=== PATIENT | male | born 1950 | race Caucasian/White ===

== ENCOUNTER 2018-12-18 15:29 | Observation (INO) ==
[2018-12-18] MEDS ORDERED: Morphine Sulfate Inj 2 MG/ML Vial IV.PUSH ONE (17:23)
--- NOTE | 2018-12-18 17:29 | ED ---
HPI General Chief complaint: Abdominal Pain Stated complaint: nausea/abd pain/shaking/no appetite Time Seen by Provider: 12/18/18 17:16 Source: patient Mode of arrival: ambulatory Limitations: no limitations History of Present Illness HPI narrative: 68yo M with PMH of possible paroxysmal afib not on anticoagulation, hernia repair, here with c/o persistent right lower abdominal pain and nausea since yesterday afternoon. Pt was seen this morning for this and had blood work, urinalysis and xray abdomen. Xray abdomen showed small amount of stool throughout a normal caliber colon. Pt said he drank prune juice and had small bowel movement but still with right sided abdominal pain and nausea so called his primary care who told him to come to ED for CT scan to r/o appendicitis. Pain is right mid abdomen and intermittent, mild, nonradiating, about a 3 out of 10 now. Denies any fever, chest pain, sob, vomiting, focal weakness or numbness. Related Data Home Medications Medication Instructions Recorded Confirmed amlodipine 5 mg PO DAILY 12/18/18 12/18/18 aspirin [Aspirin Low Dose] 81 mg PO DAILY 12/18/18 12/18/18 propranolol 60 mg PO DAILY 12/18/18 12/18/18 Allergies Allergy/AdvReac Type Severity Reaction Status Date / Time No Known Allergies Allergy Verified 12/18/18 10:10 Review of Systems ROS: all other systems reviewed are negative [facility] Social History Social History Substance History: No History of Abuse Second Hand Smoke Exposure: No Smoking Status: Never smoker How Often Do You Have a Drink Containing Alcohol: 2 to 3 times a week Recent Travel in [facility] within the Last 8 Weeks: No Recent Out of Country Travel within the Last 8 Weeks: No Exam Narrative Exam Narrative: GENERAL: 68yo M not in distress. SKIN: Focused skin assessment warm/dry. HEAD: Atraumatic. Normocephalic. EYES: Pupils equal and round. No scleral icterus. No injection or drainage. ENT: No nasal bleeding or discharge. Mucous membranes pink and moist. NECK: Trachea midline. No JVD. CARDIOVASCULAR: Regular rate and rhythm. No murmur appreciated. RESPIRATORY: No accessory muscle use. Clear to auscultation. Breath sounds equal bilaterally. GASTROINTESTINAL: Abdomen soft, +mild TTP right midabdomen and RLQ. No rebound tenderness or guarding. MUSCULOSKELETAL: No obvious deformities. No clubbing. No cyanosis. No edema. NEUROLOGICAL: Awake and alert. No obvious cranial nerve deficits. Motor grossly within normal limits. Normal speech. PSYCHIATRIC: Appropriate mood and affect; insight and judgment normal. Course Initial Documented Vital Signs Temperature 98.6 F 12/18/18 15:44 Pulse Rate 75 12/18/18 15:44 Respiratory Rate 16 12/18/18 15:44 Blood Pressure 111/56 L 12/18/18 15:44 Pulse Oximetry 94 L 12/18/18 15:44 Last Documented Vital Signs Temperature 97.9 F 12/19/18 13:15 Pulse Rate 68 12/19/18 13:15 Respiratory Rate 19 12/19/18 13:15 Blood Pressure 96/55 L 12/19/18 13:15 Pulse Oximetry 100 12/19/18 13:15 Medical Decision Making MDM Narrative Medical decision making narrative: 68yo M returns to the ED with persistent right lower abdominal pain and nausea after discharge this morning. Pt already had CBC and BMP from this morning so will not repeat it. Also had negative urinalysis today. CT a/p showed acute appendicitis without rupture or periappendiceal abscess. Added PT/PTT/INR, type and screen as well as EKG. Pt was given zofran and morphine but refused morphine since he said he is not in much pain. Discussed with general surgeon Dr. Bautista who recommends transfer to the [facility] for surgery since he do not have anesthesia after 5pm. Discussed with Dr. Anna and accepted to his service. Pt given IVF. and is NPO for surgery today. Medical Screen Exam Complete: Yes Emergency Medical Condition: Yes Differential Diagnosis Differential Diagnosis: Appendicitis vs. colitis vs. nephrolithiasis Lab Data Result diagrams: 12/19/18 13:25 12/19/18 07:52 Lab Results 12/18/18 12/18/18 12/19/18 Range/Units 19:00 19:00 07:52 WBC (4.0-11.0) th/mm3 RBC (4.50-5.90) mil/mm3 Hgb (13.0-17.0) gm/dL Hct (39.0-51.0) % MCV (80.0-100.0) fL MCH (27.0-34.0) pg MCHC (32.0-36.0) % RDW (11.6-17.2) % Plt Count (150-450) th/mm3 MPV (7.0-11.0) fL Neut % (Auto) (16.0-70.0) % Lymph % (Auto) (9.0-44.0) % [place] % (Auto) (0.0-8.0) % Eos % (Auto) (0.0-4.0) % Baso % (Auto) (0.0-2.0) % Neut # (Auto) (1.8-7.7) th/mm3 Lymph # (Auto) (1.0-4.8) th/mm3 [place] # (Auto) (0.0-0.9) th/mm3 Eos # (Auto) (0.0-0.4) th/mm3 Baso # (Auto) (0.0-0.2) th/mm3 WBC Differential Differential Comment PT 11.0 (9.8-11.6) sec INR 1.1 Ratio APTT 30.6 (23.4-31.7) sec Sodium 140 (136-145) meq/L Potassium 3.6 (3.5-5.1) meq/L Chloride 106 (98-107) meq/L Carbon Dioxide 29.1 (21.0-32.0) meq/L Anion Gap 5 (5-15) meq/L BUN 11 (7-18) mg/dL Creatinine 1.00 (0.60-1.30) mg/dL Estimated GFR 74 L (>89) mL/min Random Glucose 109 H (74-106) mg/dL Calcium 8.3 L D (8.5-10.1) mg/dL Total Bilirubin 1.4 H (0.2-1.0) mg/dL AST 11 L (15-37) U/L ALT 17 (12-78) U/L Alkaline Phosphatase 72 (45-117) U/L Total Protein 6.1 L (6.4-8.2) g/dL Albumin 3.3 L (3.4-5.0) g/dL Blood Type O Positive Antibody Screen Negative 12/19/18 Range/Units 13:25 WBC 8.2 (4.0-11.0) th/mm3 RBC 4.33 L (4.50-5.90) mil/mm3 Hgb 14.5 (13.0-17.0) gm/dL Hct 41.6 (39.0-51.0) % MCV 96.2 (80.0-100.0) fL MCH 33.5 (27.0-34.0) pg MCHC 34.8 (32.0-36.0) % RDW 12.8 (11.6-17.2) % Plt Count 153 (150-450) th/mm3 MPV 7.6 (7.0-11.0) fL Neut % (Auto) 91.5 H (16.0-70.0) % Lymph % (Auto) 2.9 L (9.0-44.0) % [place] % (Auto) 5.0 (0.0-8.0) % Eos % (Auto) 0.1 (0.0-4.0) % Baso % (Auto) 0.5 (0.0-2.0) % Neut # (Auto) 7.5 (1.8-7.7) th/mm3 Lymph # (Auto) 0.2 L (1.0-4.8) th/mm3 [place] # (Auto) 0.4 (0.0-0.9) th/mm3 Eos # (Auto) 0.0 (0.0-0.4) th/mm3 Baso # (Auto) 0.0 (0.0-0.2) th/mm3 WBC Differential . Differential Comment Auto diff final PT (9.8-11.6) sec INR Ratio APTT (23.4-31.7) sec Sodium (136-145) meq/L Potassium (3.5-5.1) meq/L Chloride (98-107) meq/L Carbon Dioxide (21.0-32.0) meq/L Anion Gap (5-15) meq/L BUN (7-18) mg/dL Creatinine (0.60-1.30) mg/dL Estimated GFR (>89) mL/min Random Glucose (74-106) mg/dL Calcium (8.5-10.1) mg/dL Total Bilirubin (0.2-1.0) mg/dL AST (15-37) U/L ALT (12-78) U/L Alkaline Phosphatase (45-117) U/L Total Protein (6.4-8.2) g/dL Albumin (3.4-5.0) g/dL Blood Type Antibody Screen Imaging Data Radiologist's impression: Abdomen/Pelvis CT 12/18/18 17:23 CONCLUSION: 1. Acute appendicitis without evidence for rupture or periappendiceal abscess at this time. 2. Significant nonspecific prostate enlargement. 3. Multiple bilobar subcentimeter hypodense cystic lesions in the liver and inferior pole the right kidney which are too small to fully characterize. Statistically, these reflect cysts or hemangiomas. 4. Mild groundglass opacities at the right lung base, likely atelectasis. ECG Data EKG Prior to Arrival: No Attestation: I personally reviewed and interpreted this ECG as follows: Interpretation: NSR 68bpm. 1st AV block. No significant ST elevation or depression. Discharge Plan Discharge Disposition Patient Disposition: ED Admit(ED Internal Use Only) Discharge Order Discharge Orders: ED Use Only Admit Order (Routine); Ordered 12/18/18 Ordered By: Felicity Holland Discharge Details Diagnosis: Acute appendicitis Physicians Team ED Provider: Felicity Holland Primary Care Provider: UNKNOWN, Attending Provider: Kym Aceves Other Providers: Everett Bautista Status ED Status: Left Department Discharge Information Discharge Date/Time: 12/18/18 22:15
[2018-12-18] MEDS ORDERED: Sod Chloride 0.9% Inj 1,000 ML IV.SIG SCH (17:30)
--- NOTE | 2018-12-18 18:04 | CT ---
EXAM DATE: 12/18/2018 5:57 PM EST AGE/SEX: 68 years / Male INDICATIONS: Right sided abdomen pain with nausea. CLINICAL DATA: This is the patient's subsequent encounter. Patient reports that signs and symptoms h ave been present for 1 day and indicates a pain score of 7/10. MEDICAL/SURGICAL HISTORY: Hypertension. A-fib. None. ORAL CONTRAST: No oral contrast ingested. RADIATION DOSE: 9.47 CTDI (mGy) COMPARISON: [facility], ABDOMEN 2V FLAT & UPRIGHT, 12/18/2018. . TECHNIQUE: Multiple contiguous axial images were obtained through the abdomen and pelvis following b olus infusion of 95 ml Omnipaque 350 (iohexol) nonionic water-soluble contrast as a single exam dos e. No oral contrast ingested. Using automated exposure control and adjustment of the mA and/or kV ac cording to patient size, radiation dose was kept as low as reasonably achievable to obtain optimal di agnostic quality images. DICOM format image data is available electronically for review and comparis on. FINDINGS: LOWER LUNGS: Mild groundglass opacities at the right lung base. LIVER: There are scattered hypodense lesions in both lobes of the liver. The largest lesion in segme nt 4 measures 2.4 cm. No volume loss or intrahepatic ductal dilatation. SPLEEN: Homogeneous density without enlargement. PANCREAS: Unremarkable without mass or calcification. KIDNEYS: Kidneys demonstrate symmetrical enhancement and are symmetrical in size without evidence fo r radiopaque renal calculi or hydronephrosis. Small subcentimeter hypodense cystic lesion in the infe rior pole of the right kidney is too small to fully characterize. ADRENAL GLANDS: Unremarkable. AORTA: Radha-aneurysmal. BOWEL/MESENTERY: Appendix is enlarged with an appendicolith present. There is moderate periappendice al stranding. No focal drainable fluid collections or pneumatosis. No free air. Remaining bowel appea r unremarkable. ABDOMINAL WALL: Intact. RETROPERITONEUM: No evidence of adenopathy in the retrocrural, para-aortic, or deep pelvic regions. BLADDER: Contours are smooth. REPRODUCTIVE: Prominent prostate enlargement. BONY STRUCTURES: Degenerative spondylosis of the lower lumbar spine. CONCLUSION: 1. Acute appendicitis without evidence for rupture or periappendiceal abscess at this time. 2. Significant nonspecific prostate enlargement. 3. Multiple bilobar subcentimeter hypodense cystic lesions in the liver and inferior pole the right kidney which are too small to fully characterize. Statistically, these reflect cysts or hemangiomas. 4. Mild groundglass opacities at the right lung base, likely atelectasis. Electronically signed by: Gurpreet Hickman MD Board Certified Radiologist 12/18/2018 6:03 PM EST
[2018-12-18] MEDS ORDERED: HYDROmorphone PF Inj 0.5 MG/0.5 ML Syringe IV.PUSH PRN (18:30)
[2018-12-18] MEDS ORDERED: HYDROmorphone PF Inj 2 MG/ML Vial IV.PUSH PRN (18:30)
[2018-12-18 19:31] LABS: Activated Partial Thrombo Time 30.6 sec (23.4-31.7); INR 1.1 Ratio
--- NOTE | 2018-12-18 19:38 | P.HPIM ---
History of Present Illness Primary Care Physician: UNKNOWN Chief Complaint: Abdominal Pain History of Present Illness: Mr. Dos Santos is a 68 year old male. He has recently arrived here from [place] and will be here till February 2019. He has come into the ER with abdominal pain. Imaging shows an acute appendisitis. Symptoms started as diffuse abdominal pain and bloating, yesterday. Symptoms have focused to the right side today and was more intense in regards to pain. At baseline he reports that he is on amlodipine, propranolol, and aspirin for a cardiac arrhythmia. He is uncertain that his underlying cardiac arrhythmia is A-fib. He last took his treatments yesterday. No arrhythmia in the ER, when seen. No distress, pain controlled, when seen. No other chronic medical problems and no other complaints tonight (no fever, no chills, no diarrhea, no vomiting). Inpatient Certification Inpatient Certification: I certify that the inpatient services were ordered in accordance with Medicare regulations governing the order. This includes certification that hospital inpatient services are reasonable and necessary and in the case of services not specified as inpatient-only under 42 CFR 419.22(n), that they are appropriately provided as inpatient services in accordance to with the 2-midnight benchmark under 43 CFR 412.3(e) Estimated Total Length of Stay (Days): 3 Plans for Post Hospital Care: Home Review of Systems Constitutional: No fevers, no chills no night sweats, no fatigue, no weakness Eyes: No eye pain, no blurry vision, no loss of vision ENT: No sore throat, no ear pain, no rhinorrhea Cardiovascular: No chest pain, no tachycardia, no palpitations, no syncope Respiratory: No wheezing, no cough, no shortness of breath Gastrointestinal: abdominal pain, no black tarry stools, no bright red blood per rectum, no vomiting, no diarrhea Musculoskeletal: No joint pain, no muscle cramps, no stiffness Integumentary: No rash, no ulcers, no drainage Neurologic: No sensory loss, no loss of motor function, no dizziness Psychiatric: No behavioral changes, no hallucinations, no suicidal ideations [facility] Social History Social History Substance History: No History of Abuse Second Hand Smoke Exposure: No Smoking Status: Never smoker How Often Do You Have a Drink Containing Alcohol: 2 to 3 times a week Recent Travel in [facility] within the Last 8 Weeks: No Recent Out of Country Travel within the Last 8 Weeks: No Immunization History Tetanus Immunization: >5 Years Medications and Allergies Allergies Allergy/AdvReac Type Severity Reaction Status Date / Time No Known Allergies Allergy Verified 12/18/18 10:10 Home Medications Medication Instructions Recorded Confirmed Type amlodipine 5 mg PO DAILY 12/18/18 12/18/18 History aspirin [Aspirin Low Dose] 81 mg PO DAILY 12/18/18 12/18/18 History propranolol 60 mg PO DAILY 12/18/18 12/18/18 History Active Medications: Active Medications Hydromorphone HCl (Dilaudid Pf Inj) 0.5 mg IV.PUSH Q4H PRN PRN Reason: Pain 3 to 6 Hydromorphone HCl (Dilaudid Pf Inj) 1 mg IV.PUSH Q4H PRN PRN Reason: Pain 7 to 10 Sodium Chloride (Ns Inj) 1,000 mls @ 100 mls/hr IV.CONT .Q10H IGLESIA Metoprolol Tartrate (Lopressor Inj) 5 mg IV.PUSH Q6H IGLESIA Ondansetron HCl (Zofran Inj) 4 mg IV.PUSH Q6H PRN PRN Reason: NAUSEA OR VOMITING Sodium Chloride (Ns Flush) 2 ml IV.FLUSH BID IGLESIA Sodium Chloride (Ns Flush) 2 ml IV.FLUSH PRN PRN PRN Reason: FLUSH AFTER USING IV ACCESS Physical Exam Vital signs: Vital Signs 12/18/18 15:44 12/18/18 18:02 12/18/18 19:14 Temperature 98.6 F 98.6 F 98.3 F Pulse Rate 75 70 73 Respiratory Rate 16 18 Blood Pressure 111/56 L 118/63 128/74 Pulse Oximetry 94 L 95 12/18/18 19:17 Temperature Pulse Rate 73 Respiratory Rate Blood Pressure Pulse Oximetry Intake & Output 12/18/18 12/18/18 12/19/18 06:59 18:59 06:59 Intake Total 1000 / 1000 Balance 1000 / 1000 Weight 80.7 kg Intake: IV 1000 / 1000 NS Inj 1,000 ML @ 1000 mls/hr 1000 / 1000 IV.SIG BOLUS IGLESIA Rx#:[id number] Other: # Voids 1 Date of Last Bowel Movement 12/18/18 Narrative: Narrative: GENERAL: NAD, A&Ox3 HEAD: Normocephalic. NECK: Supple, trachea midline. No lymphadenopathy. EYES: No scleral icterus. No injection or drainage. CARDIOVASCULAR: Regular rate and rhythm without murmurs, gallops, or rubs. RESPIRATORY: Breath sounds equal bilaterally. No accessory muscle use. GASTROINTESTINAL: Abdomen soft, tender without guarding, nondistended. MUSCULOSKELETAL: No cyanosis, or edema. SKIN: Warm and dry. NEURO: No focal neurological deficits. Results Imaging Impressions Abdomen/Pelvis CT 12/18/18 17:23 CONCLUSION: 1. Acute appendicitis without evidence for rupture or periappendiceal abscess at this time. 2. Significant nonspecific prostate enlargement. 3. Multiple bilobar subcentimeter hypodense cystic lesions in the liver and inferior pole the right kidney which are too small to fully characterize. Statistically, these reflect cysts or hemangiomas. 4. Mild groundglass opacities at the right lung base, likely atelectasis. Caprini VTE Risk Assessment Caprini VTE Risk Assessment: No/Low Risk (score <= 1) Caprini Risk Assessment Model: Point Value = 1 Point Value = 2 Point Value = 3 Point Value = 5 Age 41-60 Minor surgery BMI > 25 kg/m2 Swollen legs Varicose veins or History of unexplained or recurrent spontaneous Oral contraceptives or hormone replacement Sepsis (< 1 month) Serious lung disease, including pneumonia (< 1 month) Abnormal pulmonary function Acute myocardial infarction Congestive heart failure (< 1 month) History of inflammatory bowel disease Medical patient at bed rest Age 61-74 Arthroscopic surgery Major open surgery (> 45 min) Laparoscopic surgery (> 45 min) Malignancy Confined to bed (> 72 hours) Immobilizing plaster cast Central venous access Age >= 75 History of VTE Family history of VTE Factor V Leiden Prothrombin [id number] Lupus anticoagulant Anticardiolipin antibodies Elevated serum homocysteine Heparin-induced thrombocytopenia Other congenital or acquired thrombophilia Stroke (< 1 month) Elective arthroplasty Hip, pelvis, or leg fracture Acute spinal cord injury (< 1 month) Prophylaxis Regimen: Total Risk Factor Score Risk Level Prophylaxis Regimen 0-1 Low Early ambulation 2 Moderate Order ONE of the following: *Sequential Compression Device (SCD) *Heparin 5000 units SQ BID 3-4 Higher Order ONE of the following medications: *Heparin 5000 units SQ TID *Enoxaparin/Lovenox 40 mg SQ daily (WT < 150 kg, CrCl > 30 mL/min) *Enoxaparin/Lovenox 30 mg SQ daily (WT < 150 kg, CrCl > 10-29 mL/min) *Enoxaparin/Lovenox 30 mg SQ BID (WT < 150 kg, CrCl > 30 mL/min) AND/OR *Sequential Compression Device (SCD) 5 or more Highest Order ONE of the following medications: *Heparin 5000 units SQ TID (Preferred with Epidurals) *Enoxaparin/Lovenox 40 mg SQ daily (WT < 150 kg, CrCl > 30 mL/min) *Enoxaparin/Lovenox 30 mg SQ daily (WT < 150 kg, CrCl > 10-29 mL/min) *Enoxaparin/Lovenox 30 mg SQ BID (WT < 150 kg, CrCl > 30 mL/min) AND *Sequential Compression Device (SCD) Assessment and Plan Plan 68 year old male admitted with an acute appendicitis with underlying cardiac arrhythmia Acute Appendicitis NPO Surgical Consult PRN pain treatments IV Hydration Cardiac Arrhythmia NOS Possible A-fib Follow on telemetry NPO, so hold aspirin, amlodipine, propranolol (last taken 12/17/18) lopressor 5 mg IV Q6hr DVT Prophylaxis SCDs
[2018-12-18] MEDS: Sod Chloride 0.9% Inj 1,000 ML IV.CONT SCH (21:38)
[2018-12-19] MEDS ORDERED: Metoprolol Inj 5 MG/5 ML Vial IV.PUSH SCH
[2018-12-19] MEDS: Sod Chloride 0.9% Inj 1,000 ML IV.CONT SCH ×2 (03:41→03:42)
[2018-12-19] MEDS ORDERED: Sodium Chlor 0.9% Inj 500 ML IV.CONT ONE (04:30)
[2018-12-19] MEDS ORDERED: Chlorhexidine Gluconate 2% 1 Pack (2 Cloths) TOPICAL ONE (04:30)
[2018-12-19 08:37] LABS: Albumin 3.3 g/dL (3.4-5.0); Anion Gap 5 meq/L (5-15); Aspartate Aminotransferase 11 U/L (15-37); Blood Urea Nitrogen 11 mg/dL (7-18); Calcium 8.3 mg/dL (8.5-10.1); Carbon Dioxide 29.1 meq/L (21.0-32.0); Chloride 106 meq/L (98-107); Glomerular Filtration Rate 74 mL/min (>89); Glucose,Random 109 mg/dL (74-106); Potassium 3.6 meq/L (3.5-5.1); Sodium 140 meq/L (136-145)
[2018-12-19 08:39] LABS: Alanine Aminotransferase 17 U/L (12-78); Alkaline Phosphatase 72 U/L (45-117); Total Protein 6.1 g/dL (6.4-8.2)
--- NOTE | 2018-12-19 08:47 | P.CONGS ---
[facility] Gen Surgery Consult Note Consult date: 12/19/18 Reason for consult: other (Acute appendicitis) Requesting physician: Andrew Anna Narrative: This is a 68-year-old male with a past medical history of atrial fibrillation who presented to the emergency room with complaints of abdominal pain. The patient reports that the pain began around Saturday at 4 PM. He was in his usual state of health prior to that. He reports no associated nausea or vomiting. He does report associated chills. A CT abdomen/pelvis was obtained which is consistent with acute appendicitis. His white blood cell count is 10.7. He reports he does not take any oral anticoagulation medicine except for an 81 mg aspirin. A General Surgery consultation has been requested. Review of Systems All other systems reviewed negative except as stated in [facility] - History History Provided By: Patient - Medical History Medical History: Medical History (Last Reviewed 12/19/18 @ 08:45 by CHRISTOPHER Meneses) Afib HTN (hypertension) - Tobacco History Second Hand Smoke Exposure: No Smoking Status: Never smoker - Alcohol History How Often Do You Have a Drink Containing Alcohol: 2 to 3 times a week - Substance Use History Substance History: No History of Abuse - Travel History Recent Travel in the [place] Within the Last 8 Weeks: No Recent Travel Out of the Country Within the Last 8 Weeks: No - Immunization History Tetanus Immunization: Unsure Hx Influenza Vaccine This Season: Yes Medications and Allergies Allergies Allergy/AdvReac Type Severity Reaction Status Date / Time No Known Allergies Allergy Verified 12/18/18 10:10 Home Medications Medication Instructions Recorded Confirmed Type amlodipine 5 mg PO DAILY 12/18/18 12/20/18 History aspirin [Aspirin Low Dose] 81 mg PO DAILY 12/18/18 12/20/18 History propranolol 60 mg PO DAILY 12/18/18 12/20/18 History Active Medications: Active Medications Hydromorphone HCl (Dilaudid Pf Inj) 0.5 mg IV.PUSH Q4H PRN PRN Reason: Pain 3 to 6 Hydromorphone HCl (Dilaudid Pf Inj) 1 mg IV.PUSH Q4H PRN PRN Reason: Pain 7 to 10 Sodium Chloride (Ns Inj) 1,000 mls @ 100 mls/hr IV.CONT .Q10H [facility] Last Admin: 12/19/18 03:42 Dose: Not Given Lactated Ringer's (Lr 1000 Ml Inj) 1,000 mls @ 30 mls/hr IV.CONT .Q24H ONE Stop: 12/20/18 04:29 Sodium Chloride (Ns Inj) 500 mls @ 30 mls/hr IV.CONT .[id number] ONE Stop: 12/19/18 21:09 Piperacillin/Tazobactam/Dextrose (Zosyn 3.375 Gm Premix) 3.375 gm in 50 mls @ 100 mls/hr IV.SIG Q8H IGLESIA Ondansetron HCl (Zofran Inj) 4 mg IV.PUSH Q6H PRN PRN Reason: NAUSEA OR VOMITING Sodium Chloride (Ns Flush) 2 ml IV.FLUSH BID IGLESIA Last Admin: 12/18/18 23:46 Dose: Not Given Sodium Chloride (Ns Flush) 2 ml IV.FLUSH PRN PRN PRN Reason: FLUSH AFTER USING IV ACCESS Exam Vital signs: Vital Signs 12/18/18 15:44 12/18/18 18:02 12/18/18 19:14 Temperature 98.6 F 98.6 F 98.3 F Pulse Rate 75 70 73 Respiratory Rate 16 18 Blood Pressure 111/56 L 118/63 128/74 Pulse Oximetry 94 L 95 12/18/18 19:17 12/18/18 22:02 12/18/18 22:04 Temperature Pulse Rate 73 64 64 Respiratory Rate 18 Blood Pressure 131/72 Pulse Oximetry 12/18/18 22:14 12/18/18 23:00 12/19/18 00:05 Temperature 97.8 F Pulse Rate 62 67 72 Respiratory Rate 20 17 Blood Pressure 136/74 129/65 Pulse Oximetry 97 12/19/18 03:26 12/19/18 04:01 12/19/18 05:10 Temperature 98.4 F Pulse Rate 75 74 Respiratory Rate 18 17 Blood Pressure 111/63 Pulse Oximetry 99 Intake & Output 12/18/18 12/19/18 12/19/18 18:59 06:59 18:59 Intake Total 1000 / 1000 1000 / 1000 Output Total 1350 / 1350 Balance 1000 / 1000 -350 / -350 Weight 80.7 kg 80.7 kg Intake: IV 1000 / 1000 1000 / 1000 NS Inj 1,000 ML @ 100 mls/hr IV 1000 / 1000 .CONT .Q10H IGLESIA Rx#:[id number] NS Inj 1,000 ML @ 1000 mls/hr 1000 / 1000 IV.SIG BOLUS IGLESIA Rx#:[id number] Oral 0 / 0 Output: Urine 1350 / 1350 Other: # Voids 1 2 Date of Last Bowel Movement 12/18/18 12/18/18 # Bowel Movements 0 Weight On Admission 80.7 kg Narrative: GENERAL: Very pleasant 68 year old male resting in bed in no acute distress. SKIN: Warm and dry. HEAD: Atraumatic. Normocephalic. EYES: Pupils equal and round. No scleral icterus. No injection or drainage. ENT: No nasal bleeding or discharge. Mucous membranes pink and moist. NECK: Trachea midline. CARDIOVASCULAR: Regular rate and rhythm. RESPIRATORY: No accessory muscle use. Clear to auscultation. Breath sounds equal bilaterally. GASTROINTESTINAL: Abdomen soft, nondistended. RLQ tenderness to palpation. MUSCULOSKELETAL: Extremities without clubbing, cyanosis, or edema. No obvious deformities. NEUROLOGICAL: Awake and alert. No obvious cranial nerve deficits. Motor grossly within normal limits. Five out of 5 muscle strength in the arms and legs. Normal speech. PSYCHIATRIC: Appropriate mood and affect; insight and judgment normal. Results - Labs 12/19/18 13:25 12/19/18 07:52 Laboratory Results - last 24 hr 12/18/18 12/18/18 12/19/18 19:00 19:00 07:52 PT 11.0 INR 1.1 APTT 30.6 Sodium 140 Potassium 3.6 Chloride 106 Carbon Dioxide 29.1 Anion Gap 5 BUN 11 Creatinine 1.00 Estimated GFR 74 L Random Glucose 109 H Calcium 8.3 L D Total Bilirubin 1.4 H AST 11 L ALT 17 Alkaline Phosphatase 72 Total Protein 6.1 L Albumin 3.3 L Blood Type O Positive Antibody Screen Negative - Imaging Imaging: ITS Impressions Abdomen/Pelvis CT 12/18/18 17:23 CONCLUSION: 1. Acute appendicitis without evidence for rupture or periappendiceal abscess at this time. 2. Significant nonspecific prostate enlargement. 3. Multiple bilobar subcentimeter hypodense cystic lesions in the liver and inferior pole the right kidney which are too small to fully characterize. Statistically, these reflect cysts or hemangiomas. 4. Mild groundglass opacities at the right lung base, likely atelectasis. CT scan - abdomen: image reviewed Assessment and Plan - Plan 68 year old male with acute appendicitis -Plan for OR today -Obtain consents -NPO -Continue IVF and IV antibiotics -Procedure explained in detail including risks and benefits -Thank you for this consult; We will continue to follow Discussed Condition With: Dr. Jansen Mr. Dos Santos + on the phone - Attending Attestation I certify and attest that I personally examined the patient. ME[employer] PACK[employer]ER documented our visit. Acute appendicitis. DW patient and . Agrees to appendectomy. OR notified. AMOS JANSEN MD FACS
[2018-12-19] MEDS ORDERED: Piperacil/Tazo 3.375 GM Premix 3.375 GM/50 ML PIGGYBACK IV.SIG SCH (09:00)
[2018-12-19] MEDS ORDERED: Bupivacaine/Epinephrine Inj 0.25% 50 ML Vial ONE (10:38)
[2018-12-19] MEDS ORDERED: Glycopyrrolate Inj 1 MG/5 ML Syringe IV.PUSH ONE (10:53)
[2018-12-19] MEDS ORDERED: Lidocaine PF 1% Inj 5 ML Syringe INFILTRATN ONE (10:53)
[2018-12-19] MEDS ORDERED: Neostigmine Inj 5 MG/5 ML Syringe IV.PUSH ONE (10:53)
[2018-12-19] MEDS ORDERED: Ketorolac Inj 30 MG/ML (IVP) Vial IV.PUSH ONE (10:53)
[2018-12-19] MEDS ORDERED: Phenylephrine/NS 1000 MCG/10ML Syringe IV.PUSH ONE (10:53)
[2018-12-19] MEDS ORDERED: Levofloxacin 500 mg Premix Inj 500 MG/100 ML PIGGYBACK IV.SIG ONE (11:09)
--- NOTE | 2018-12-19 11:50 | P.PNIM ---
Subjective Interval history: Patient seen lying in bed prior to going to surgery. He reports that he does have some continued right lower quadrant pain but that it is much better than before. Denies that he has had any fever or chills. No nausea or vomiting. Physical Exam Vital signs: Vital Signs 12/18/18 15:44 12/18/18 18:02 12/18/18 19:14 Temperature 98.6 F 98.6 F 98.3 F Pulse Rate 75 70 73 Respiratory Rate 16 18 Blood Pressure 111/56 L 118/63 128/74 Pulse Oximetry 94 L 95 12/18/18 19:17 12/18/18 22:02 12/18/18 22:04 Temperature Pulse Rate 73 64 64 Respiratory Rate 18 Blood Pressure 131/72 Pulse Oximetry 12/18/18 22:14 12/18/18 23:00 12/19/18 00:05 Temperature 97.8 F Pulse Rate 62 67 72 Respiratory Rate 20 17 Blood Pressure 136/74 129/65 Pulse Oximetry 97 12/19/18 03:26 12/19/18 04:01 12/19/18 05:10 Temperature 98.4 F Pulse Rate 75 74 Respiratory Rate 18 17 Blood Pressure 111/63 Pulse Oximetry 99 12/19/18 08:00 Temperature 98.8 F Pulse Rate 74 Respiratory Rate 20 Blood Pressure 104/56 L Pulse Oximetry 93 L Intake & Output 12/18/18 12/19/18 12/19/18 18:59 06:59 18:59 Intake Total 1000 / 1000 1000 / 1000 300 / 300 Output Total 1350 / 1350 Balance 1000 / 1000 -350 / -350 300 / 300 Weight 80.7 kg 80.7 kg Intake: IV 1000 / 1000 1000 / 1000 300 / 300 NS Inj 1,000 ML @ 100 mls/hr IV 1000 / 1000 .CONT .Q10H [facility] Rx#:[id number] Ofirmev Inj 1,000 mg In 100 ml 100 / 100 @ 0 mls/hr IV.SIG .STK-MED ONE Rx#:[id number] Levaquin 500 mg Premix Inj 500 100 / 100 mg In 100 ml @ 0 mls/hr IV.SIG .STK-MED ONE Rx#:[id number] NS Inj 1,000 ML @ 1000 mls/hr 1000 / 1000 IV.SIG [facility] IGLESIA Rx#:[id number] Flagyl 500 MG Inj 100 ML @ 0 100 / 100 mls/hr IV.SIG .STK-MED ONE Rx#: [id number] Oral 0 / 0 Output: Urine 1350 / 1350 Other: # Voids 1 2 Date of Last Bowel Movement 12/18/18 12/18/18 # Bowel Movements 0 Weight On Admission 80.7 kg Narrative: GENERAL: Well-nourished, well-developed adult male in no obvious distress. SKIN: Warm and dry. HEAD: Atraumatic. Normocephalic. CARDIOVASCULAR: Regular rate and rhythm. RESPIRATORY: No accessory muscle use. Clear to auscultation. Breath sounds equal bilaterally. GASTROINTESTINAL: Abdomen soft, right lower quadrant tenderness with slight guarding, non-distended. Positive bowel sounds. MUSCULOSKELETAL: Extremities without clubbing, cyanosis, or edema. No obvious deformities. NEUROLOGICAL: Awake and alert. No obvious cranial nerve deficits. Motor grossly within normal limits. Normal speech. Results Labs CBC & Chem 7: 12/19/18 07:52 Imaging Imaging: Impressions Abdomen/Pelvis CT 12/18/18 17:23 CONCLUSION: 1. Acute appendicitis without evidence for rupture or periappendiceal abscess at this time. 2. Significant nonspecific prostate enlargement. 3. Multiple bilobar subcentimeter hypodense cystic lesions in the liver and inferior pole the right kidney which are too small to fully characterize. Statistically, these reflect cysts or hemangiomas. 4. Mild groundglass opacities at the right lung base, likely atelectasis. Assessment and Plan Plan Patient is a 68-year-old male with a past medical history that includes hypertension and cardiac dysrhythmia who presented to the emergency room with abdominal pain. Acute appendicitis -General surgical consult placed; appreciate assistance -Pain management as indicated -IVF; n.p.o. until surgery Cardiac arrhythmia; ASA anticoagulation -Possible A. fib -Telemetry -Restart home medications except ASA -Hold anticoagulation until post surgery DVT prophylaxis: Teds/SCDs Discharge planning: Likely home once cleared by surgery Progress Note: Quality VTE Deep Vein Thrombosis/Pulmonary Embolism Present on Admission: No
--- NOTE | 2018-12-19 12:04 | P.CODE44 ---
Code 44 - Inpatient to Obs - Code 44 - Inpatient to Obs Statement: A clinical review of the case has been conducted by a member of the Utilization Review Committee. The findings indicate the patient meets criteria for observation status. The information and decision has been discussed with the attending physician Kym Aceves DO and physician provider Maggie Chapman MD.
[2018-12-19 12:48] VITALS: RESP 19
[2018-12-19] MEDS ORDERED: fentaNYL Citrate Inj 100 MCG/2 ML Ampul ONE (12:58)
[2018-12-19 13:17] VITALS: BP 96/55; PULSE 68; TEMP 97.9; O2SAT 100
--- NOTE | 2018-12-19 13:27 | MP ---
cc: Dav Cody MD, Joseph D MD DATE OF OPERATION: 12/19/2018 PREOPERATIVE DIAGNOSIS: Acute appendicitis. POSTOPERATIVE DIAGNOSES: 1. Acute appendicitis. 2. Contained perforation. PROCEDURE PERFORMED: 1. Laparoscopic appendectomy. 2. Laparoscopic drain placement. SURGEON: Dav Cody MD [employer] [employer] OPERATOR: Julia . ANESTHESIA: General endotracheal. INDICATIONS FOR PROCEDURE: Everett Dos Santos is a pleasant 68-year-old gentleman who presented to [facility] yesterday with complaints of right lower quadrant abdominal pain. He was seen and evaluated and worked up and found to have acute appendicitis. Dr. Bautista was inclusion paraeducator and he was consulted. He recommended immediate transfer to [facility] for appendectomy as a [facility] operating room was not available after 5 p.m. Apparently, there was a significant delay in the transfer and the patient did not arrive until early this morning. Dr. Bautista was unavailable when the patient arrived and he asked if I could see the patient. The patient was seen and evaluated. He was offered immediate appendectomy. Operating room was notified and he was added onto the schedule. Risks and benefits of open laparoscopic appendectomy were discussed with him. He was agreeable. INTRAOPERATIVE FINDINGS: The patient had a contained perforation. It looked like the appendix ruptured into the mesentery and once we opened the mesentery, a fair amount of pus came out. This was immediately suction irrigated. Minimal spillage occurred. The abdominal cavity was rinsed out with 1 liter of warm saline solution and a drain was left in place. DETAILS OF PROCEDURE: The patient was identified, brought to the operating room, placed supine on the operating table. After adequate general endotracheal anesthesia was achieved, the abdomen was prepped and draped in standard surgical fashion. Infraumbilical space was anesthetized with 0.25% Marcaine. Infraumbilical incision was made. Dissection was carried down through subcutaneous tissue to midline fascia. Midline fascia was incised sharply. A finger was then placed in the peritoneal cavity without difficulty. Blunt balloon trocar was inserted, and the abdomen was insufflated to 15 mmHg using CO2 gas. Next, two 5 mm trocars were placed in the lower midline under direct vision after anesthetizing the skin and subcutaneous tissue with 0.25% Marcaine. Attention was directed to the right lower quadrant where the cecum was identified. The inflamed appendix was identified with a purulent exudate around it. The appendix was stuck down to its own mesentery. When we elevated it up, we could see the mesentery of the appendix was quite dilated. The mesentery was then taken down with the Harmonic scalpel. When we were taking down the mesentery, we encountered an abscess cavity within the mesentery. This was immediately suction irrigated out. The mesentery was then followed down to the level of the cecum. Once the level of the cecum as achieved, two 2-0 Vicryl Endoloops were placed on the proximal appendix at the junction of the cecum. Distal appendix was transected and placed into an Endopouch bag and brought out through the infraumbilical port. Appendix was sent to Pathology for analysis. Next, the abdominal cavity was rinsed out with 1 liter of warm saline solution. The Endoloops were tested and found to be intact with no leakage of stool from the appendiceal stump. A 10-Tristanian round drain was placed into the right lower quadrant. It was brought out through the suprapubic port. The omentum was then placed over the stump and adjacent to the drain. Abdomen was then desufflated. All ports were removed under direct vision. Midline fascia was repaired with 0 Vicryl in a [id number] fashion. Skin was closed with 4-0 Vicryl. The patient tolerated the procedure well, was awakened, extubated and brought to the recovery in stable condition. MD YVETTE Russell/brcok/remedios , 12:09 PM , 12:17 PM
[2018-12-19 13:47] LABS: Baso % (Auto) 0.5 % (0.0-2.0); Eos % (Auto) 0.1 % (0.0-4.0); Hematocrit 41.6 % (39.0-51.0); Hemoglobin 14.5 gm/dL (13.0-17.0); Lymph # (Auto) 0.2 th/mm3 (1.0-4.8); Lymph % (Auto) 2.9 % (9.0-44.0); Mean Corpuscular HGB Conc 34.8 % (32.0-36.0); Mean Corpuscular Hemoglobin 33.5 pg (27.0-34.0); Mean Corpuscular Volume 96.2 fL (80.0-100.0); Mean Platelet Volume 7.6 fL (7.0-11.0); Mono # (Auto) 0.4 th/mm3 (0.0-0.9); Neut # (Auto) 7.5 th/mm3 (1.8-7.7); Neut % (Auto) 91.5 % (16.0-70.0); Platelet Count 153 th/mm3 (150-450); Red Blood Count 4.33 mil/mm3 (4.50-5.90); Red Cell Distribution Width 12.8 % (11.6-17.2); White Blood Count 8.2 th/mm3 (4.0-11.0)
[2018-12-19] MEDS ORDERED: metroNIDAZOLE 500 MG Tablet PO SCH (14:00)
--- NOTE | 2018-12-19 14:32 | ECG ---
Date Performed: 12/18/2018 Time Performed: 18:59:38 PTAGE: 68 years EKG: Sinus rhythm WITH FIRST DEGREE AV BLOCK POSSIBLE RIGHT VENTRICULAR CONDUCTION DELAY ABNORMAL ECG NO PREVIOUS TRACING DOCTOR: Hillary Logan Interpretating Date/Time 12/19/2018 14:30:18
--- NOTE | 2018-12-19 17:11 | P.DS ---
DS: Providers Date of admission: 12/18/18 18:30 Primary care physician: UNKNOWN Consults: 12/18/18 18:28 Consult to General Surgery Stat Consulting Provider: Everett Bautista For STAT consult, spoke directly to:: Dr. Bautista Preferred Rating Examiner:: Everett Bautista Reason for Consultation: Acute appendicitis Spoke with:: rhianna Iniguez verified dr to dr ferguson STAT consult Date Notified:: 12/18/18 Time Notified:: 23:12 Ordering Provider: CAIT Brief History from admission: Mr. Dos Santos is a 68 year old male. He has recently arrived here from [place] and will be here till February 2019. He has come into the ER with abdominal pain. Imaging shows an acute appendisitis. Symptoms started as diffuse abdominal pain and bloating, yesterday. Symptoms have focused to the right side today and was more intense in regards to pain. At baseline he reports that he is on amlodipine, propranolol, and aspirin for a cardiac arrhythmia. He is uncertain that his underlying cardiac arrhythmia is A-fib. He last took his treatments yesterday. No arrhythmia in the ER, when seen. No distress, pain controlled, when seen. No other chronic medical problems and no other complaints tonight (no fever, no chills, no diarrhea, no vomiting). DS: Summary Patient is a 68-year-old male with a past medical history that includes hypertension and cardiac dysrhythmia who presented to the emergency room with a complaint of right lower quadrant abdominal pain. He was evaluated by CT and found to have acute appendicitis. Dr. Dav Cody performed appendectomy on 12/19/18. Patient tolerated procedure well. Appendix was found to have ruptured so he was placed on Levaquin and Flagyl. Patient discharged with abdominal drain and directed to follow-up with general surgery in 1 week. Time Spent with Patient Total time spent providing and/or coordinating discharge services: Quality: VTE Deep Vein Thrombosis/Pulmonary Embolism Present on Admission: No Exam Narrative Exam Narrative: GENERAL: Well-nourished, well-developed adult male in no obvious distress. SKIN: Warm and dry. HEAD: Atraumatic. Normocephalic. CARDIOVASCULAR: Regular rate and rhythm. RESPIRATORY: No accessory muscle use. Clear to auscultation. Breath sounds equal bilaterally. GASTROINTESTINAL: Abdomen soft, right lower quadrant tenderness with slight guarding, non-distended. Positive bowel sounds. Surgical wound well approximated with no drainage. Drain in place. MUSCULOSKELETAL: Extremities without clubbing, cyanosis, or edema. No obvious deformities. NEUROLOGICAL: Awake and alert. No obvious cranial nerve deficits. Motor grossly within normal limits. Normal speech. Results Pending studies at discharge: Pending at discharge 12/19/18 13:46 Surgical [PTH] Routine Labs on day of discharge: Labs from last 24 hours 12/19/18 12/19/18 12/18/18 13:25 07:52 19:00 WBC 8.2 RBC 4.33 L Hgb 14.5 Hct 41.6 MCV 96.2 MCH 33.5 MCHC 34.8 RDW 12.8 Plt Count 153 MPV 7.6 Neut % (Auto) 91.5 H Lymph % (Auto) 2.9 L [place] % (Auto) 5.0 Eos % (Auto) 0.1 Baso % (Auto) 0.5 Neut # (Auto) 7.5 Lymph # (Auto) 0.2 L [place] # (Auto) 0.4 Eos # (Auto) 0.0 Baso # (Auto) 0.0 WBC Differential . Differential Comment Auto diff final PT INR APTT Sodium 140 Potassium 3.6 Chloride 106 Carbon Dioxide 29.1 Anion Gap 5 BUN 11 Creatinine 1.00 Estimated GFR 74 L Random Glucose 109 H Calcium 8.3 L D Total Bilirubin 1.4 H AST 11 L ALT 17 Alkaline Phosphatase 72 Total Protein 6.1 L Albumin 3.3 L Blood Type O Positive Antibody Screen Negative 12/18/18 19:00 WBC RBC Hgb Hct MCV MCH MCHC RDW Plt Count MPV Neut % (Auto) Lymph % (Auto) [place] % (Auto) Eos % (Auto) Baso % (Auto) Neut # (Auto) Lymph # (Auto) [place] # (Auto) Eos # (Auto) Baso # (Auto) WBC Differential Differential Comment PT 11.0 INR 1.1 APTT 30.6 Sodium Potassium Chloride Carbon Dioxide Anion Gap BUN Creatinine Estimated GFR Random Glucose Calcium Total Bilirubin AST ALT Alkaline Phosphatase Total Protein Albumin Blood Type Antibody Screen Impressions ITS Impressions Abdomen/Pelvis CT 12/18/18 17:23 CONCLUSION: 1. Acute appendicitis without evidence for rupture or periappendiceal abscess at this time. 2. Significant nonspecific prostate enlargement. 3. Multiple bilobar subcentimeter hypodense cystic lesions in the liver and inferior pole the right kidney which are too small to fully characterize. Statistically, these reflect cysts or hemangiomas. 4. Mild groundglass opacities at the right lung base, likely atelectasis. Discharge Plan Discharge Disposition Patient Disposition: 01 Discharge Home Discharge Condition Condition: Stable Discharge Order Discharge Orders: Discharge Order (Routine); Ordered 12/19/18 Ordered By: Corina Brown Discharge Details Anticipated Discharge Date: 12/19/18 Discharge Comment: Okay to discharge once cleared by general surgery Physicians Team ED Provider: Felicity Holland Primary Care Provider: YULIYA, Attending Provider: Kym Aceves Other Providers: Everett Bautista Rxs /Orders / Referrals /Forms Prescriptions: New metronidazole 500 mg Tablet 500 mg PO Q8HR Qty: 21 RF: 0 levofloxacin 500 mg Tablet 500 mg PO DAILY Qty: 7 RF: 0 Continue propranolol 60 mg Capsule,Extended Release 24 Hr 60 mg PO DAILY RF: 0 amlodipine 5 mg Tablet 5 mg PO DAILY RF: 0 aspirin [Aspirin Low Dose] 81 mg Tablet,Delayed Release (Dr/Ec) 81 mg PO DAILY RF: 0 Referrals: Dav Cody MD [Physician] - See Instructions (Please call doctor's office and make an appointment for follow-up in 1 week.) Discharge Instructions Patient Printed Instructions: Laparoscopic Appendectomy (DC) Status ED Status: Left Department
[2018-12-20] MEDS ORDERED: levoFLOXacin 500 MG Tablet PO SCH (09:00)
== END 2018-12-19 18:10 | disposition home or self-care (01) ==
LOC: PHED 15:29 → PHEDH 18:30 → INTOOBSV 18:30 → PHEDH 22:15 → N06 22:38
PROVIDERS: ADMIT Internal Medicine; ATTEND Internal Medicine
PROC: LAPAPPY (ICD-10-PCS; 2018-12-19 10:53)
CPT/HCPCS: 74019; 74177; 80048; 80053; 81001; 85025; 85610; 85730; 86850; 86900; 86901; 88304; 90761; 93005; 96361; 96374; 96375; 99284; 99285; G0378; J0131; J1100; J1885; J1956; J2250; J2270; J2370; J2405; J2704; J2710; J3010; J7030; J7120; Q9967